=== PATIENT | male | born 1970 | race Caucasian/White ===

== ENCOUNTER → 2016-05-18 | Outpatient (CLI) | payer OTHER ==
[~2016-05-18] MED LIST: ALPRAZOLAM0.5 MG PO; AMBIEN10 MG PO; COUMADIN PO; COUMADIN5 MG PO; GABAPENTIN300 M2 PO; LOVENOX40 MG/0.4 INJ; OXYCODONE HCL E80 MG PO; OXYCODONE HCL15 MG PO; OXYCONTIN PO; OXYCONTIN80 MG PO; OXYIR5 MG PO; PRILOSEC20 M1 PO; TYLOX 5/500 CAP1 CAP PO
[2016-05-18 14:52] LABS: HEMATOCRIT 37.2 % (38.0-50.0); HEMOGLOBIN 11.5 gm/dL (13.0-16.0); MEAN CELL VOLUME 69.8 FL (83-96); MEAN CORPUSCULAR HEMOGLOBIN 21.7 PG (28-34); RED BLOOD COUNT 5.33 X10e (3.90-5.60); RED CELL DISTRIBUTION WIDTH 19.4 % (11.0-15.5); WHITE BLOOD COUNT 7.7 X10e3 (4.0-10.5)
[2016-05-18 15:28] LABS: BUN/CREATININE RATIO 13.57; CALCIUM SERUM 9.1 mg/dL (8.4-10.2); CREATININE SERUM 1.4 mg/dL (0.6-1.4); GLOM FILT RATE Estimated 59.4 mL/min (>60); POTASSIUM 3.2 mmol/L (3.5-5.1)
== END | disposition home or self-care (01) ==
LOC: CAMB 14:29
PROVIDERS: Specialist
DX: Z01.812 Encounter for preprocedural laboratory examination (principal); K43.9 Ventral hernia without obstruction or gangrene
CPT/HCPCS: 36415; 80048; 85027

== ENCOUNTER 2016-05-22 07:24 | Inpatient (IN) | payer OTHER ==
--- NOTE | ~2016-05-22 | DS ---
Unit #: [id number] #: [id number] Patient: SHAYE BURK [id number] [address] [place], [place] [address] [id number] MR#: [id number] NAME: SHAYE BURK. ROOM: [facility] Age: 46 Sex: M Admission Date: 05/22/2016 : 1970 Discharge Date: Attending Physician: Moy Song M.D. Primary Care Physician: Juvenal Macario M.D. DISCHARGE SUMMARY HISTORY AND HOSPITAL COURSE Mr. Burk is a 46-year-old gentleman, who has previously had exploratory laparotomy for colon cancer. He has developed an incisional ventral hernia. He was brought in the morning of surgery, where he underwent a successful laparoscopic ventral hernia repair. The night of surgery, he was afebrile with stable vital signs. He was able to tolerate a diet and he had a bowel movement. He has good urine output. His wounds are intact with no complications and his hernia is well repaired. The patient has been ambulatory. His chemistries and CBC were normal. He will be discharged home today with instructions to ambulate ad elham, but do no strenuous activity or lifting. He is to wear his abdominal binder when ambulating. He may shower and use a laxative as needed. He is to call and follow up in the office in 10 to 14 days. We have resumed his Coumadin and given him a prescription for increased dose of oxycodone as he is on chronic pain management. His other medications can be continued at home and his med reconciliation sheet was completed. The patient understood these instructions and will be discharged home in stable condition. Dictated by... Gee Huitron/fatmata TD: 05/23/2016 07:13 JOB #: [id number] DISCHARGE SUMMARY Page 1 of 1 X Moy Song MD X DISCHARGE SUMMARY
--- NOTE | ~2016-05-22 | OR ---
Unit #: [id number] #: [id number] Patient: SHAYE BURK [id number] [facility] [address] [place], [place] [address] [id number] Radha MR#: [id number] NAME: SHAYE BURK. ROOM: [facility] Date of Procedure: 05/22/2016 Admission Date: 05/22/2016 Surgeon: Moy Song M.D. : 1970 Attending Physician: Moy Song M.D. Primary Care Physician: Juvenal Macario M.D. OPERATIVE REPORT REVISED REPORT PREOPERATIVE DIAGNOSIS Incisional ventral hernia. POSTOPERATIVE DIAGNOSIS Incisional ventral hernia. PROCEDURES PERFORMED Diagnostic laparoscopy, laparoscopic ventral hernia repair using a 25 x 33 cm Echo Mesh by [employer]. ANESTHESIA General endotracheal anesthesia. ESTIMATED BLOOD LOSS Less than 20 mL. INDICATIONS FOR PROCEDURE A 46-year-old gentleman, who previously had an emergency operation for an obstructing transverse colon cancer. Postoperatively, he developed an incisional ventral hernia. DESCRIPTION OF PROCEDURE The patient was admitted to [facility], positively identified, and transported to the operating room, and after induction of general endotracheal anesthesia, a Charles catheter was placed. He received IV antibiotics per SCIP protocol and he was prepped and draped in usual sterile fashion. In the left upper quadrant, a 5-mm incision was made using an Optiview trocar. We entered into the peritoneal cavity and created pneumoperitoneum. Laparoscope was introduced into peritoneal cavity. There were no adhesions to the anterior abdominal wall and he had multiple facial defects. The most superior and inferior defects were marked and then along the lateral side fowler on the left, a 12-mm and a 5-mm trocar placed and on the right side, two 5-mm trocars were placed. I have measured the defect with the adequate amount of overlap and chose a 25 x 33 cm Echo Mesh by [employer]. The mesh was passed in the peritoneal cavity in the usual fashion. The insufflation tubing was brought out through the midline using a neoClose device. The positioning balloon was inflated and the mesh was appropriately positioned. Once it was adequately positioned, I checked the overlap and it was more than adequate. SecureStrap tacking device was used to secure the mesh Unit #: [id number] #: [id number] Patient: SHAYE BURK circumferentially and once it was adequately positioned and tacked, the positioning device was removed through the 12-mm trocar. I recreated the pneumoperitoneum and evaluated the mesh. It was well positioned. All defects were covered with wide overlap. There was no bleeding. The 12-mm trocar site was closed with and neoClose device and the closure was air-tight. I then reduced the pneumoperitoneum and removed laparoscope and trocars. 0.5% Marcaine with epinephrine was infiltrated in each trocar site. The skin was closed with sterile skin roel. Dry sterile bandages were placed. Sponges and needle counts were correct x3. The patient tolerated the procedure well and was transported to recovery in stable condition. Findings and postoperative expectations were discussed with his family. Dictated by... Gee Huitron/fatmata TD: 05/23/2016 02:01 JOB #: [id number] OPERATIVE REPORT Page 1 of 1 X Moy Song MD PROCEDURE OPERATIVE NOTE
[2016-05-22 08:37] LABS: INR 1.1; PROTHROMBIN TIME (PATIENT) 11.3 SECONDS (9.6-11.5)
[2016-05-23 04:35] LABS: HEMOGLOBIN 10.7 gm/dL (13.0-16.0); MEAN CELL VOLUME 71.4 FL (83-96); MEAN CORPUSCULAR HEMOGLOBIN 21.9 PG (28-34); MEAN CORPUSCULAR HGB CONC 30.6 g/dL (30-36); RED BLOOD COUNT 4.91 X10e (3.90-5.60); RED CELL DISTRIBUTION WIDTH 19.6 % (11.0-15.5); WHITE BLOOD COUNT 10.5 X10e3 (4.0-10.5)
[2016-05-23 04:59] LABS: BUN/CREATININE RATIO 11.81; CALCIUM SERUM 8.8 mg/dL (8.4-10.2); CREATININE SERUM 1.1 mg/dL (0.6-1.4); GLOM FILT RATE Estimated 79.5 mL/min (>60); POTASSIUM 4.3 mmol/L (3.5-5.1)
== END 2016-05-23 14:17 | disposition home or self-care (01) | DRG 355 ==
LOC: CSUR 07:24 → CPACUOF 10:16 → C4C 11:48
PROVIDERS: Specialist
PROC: 0WUF4JZ Supplement Abdominal Wall with Synthetic Substitute, Percutaneous Endoscopic Approach (ICD-10-PCS; principal; 2016-05-22 09:30)
DX: K43.2 Incisional hernia without obstruction or gangrene (principal); G89.29 Other chronic pain; Z85.038 Personal history of other malignant neoplasm of large intestine; Z86.711 Personal history of pulmonary embolism; M54.9 Dorsalgia, unspecified
CPT/HCPCS: 80048; 83735; 84132; 85027; 85610; 94760; C1781; J0131; J0690; J1100; J1170; J1650; J2250; J2405; J2710; J3010